=== PATIENT | male | born 1955 | race Caucasian/White ===

== ENCOUNTER 2024-04-09 11:09 | Emergency (ER) | payer SELFPAY ==
--- NOTE | 2024-04-09 11:45 | ED Physician Documentation ---
PD HPI NVD - Stated complaint Stated Complaint: GI,MARSHALL - Chief complaint Chief Complaint: Abd Pain - History obtained from History obtained from: Patient - Additonal information Additional information: This is a 68-year-old gentleman who is about a year out from an orthotopic heart transplant done for cardiomyopathy. This was done at the [facility] in [facility]. He is maintained on cyclosporine, prednisone, CellCept, valganciclovir. He is visiting from [facility] where he lives with his and over the last 3 days has had nonbloody diarrhea associate with nausea but no significant abdominal pain. No fevers. He had a course of antibiotics in December and more recently had a single dose of antibiotics before dental cleaning 3 weeks ago. He was baseline positive for HSV, EBV, toxoplasma, and CMV. PD PAST MEDICAL HISTORY - Past Medical History Past Medical History: Yes Cardiovascular: Hypertension, DC, Other : Other - Past Surgical History Past Surgical History: Yes General: Other - Allergies Allergies/Adverse Reactions: Allergies Allergy/AdvReac Type Severity Reaction Status Date / Time amlodipine Allergy Unknown Verified 04/09/24 11:17 - Social History Does the pt smoke?: No Smoking Status: Never smoker Does the pt drink ETOH?: No Does the pt have substance abuse?: No - Immunizations Immunizations are current?: No PD ED PE NORMAL - Vitals Vital signs reviewed: Yes - General General: Alert and oriented X 3, No acute distress - HEENT HEENT: PERRL, EOMI - Neck Neck: Supple, no meningeal sign, No bony TTP - Cardiac Cardiac: RRR, No murmur - Respiratory Respiratory: No respiratory distress, Clear bilaterally - Abdomen Abdomen: Normal bowel sounds, Soft, Non tender - Back Back: No CVA TTP, No spinal TTP - Derm Derm: Normal color, Warm and dry - Extremities Extremities: No edema, No calf tenderness / cord - Neuro Neuro: Alert and oriented X 3 Results - Vitals Vitals: Vital Signs - 24 hr 04/09/24 04/09/24 04/09/24 11:17 13:22 13:51 Temperature 36.2 C L Heart Rate 103 H 102 H 91 Respiratory 16 16 Rate Blood Pressure 132/97 H 143/100 H O2 Saturation 98 96 99 Oxygen O2 Source Room air - Labs Labs: Laboratory Tests 04/09/24 04/09/24 11:45 11:45 WBC 6.1 RBC 3.20 L Hgb 10.1 L Hct 32.0 L MCV 100.0 H MCH 31.6 H MCHC 31.6 L RDW 15.9 H Plt Count 214 MPV 9.8 Neut # (Auto) 4.6 Lymph # (Auto) 0.9 L [place] # (Auto) 0.4 Eos # (Auto) 0.0 Baso # (Auto) 0.0 Absolute Nucleated RBC 0.00 Nucleated RBC % 0.0 Sodium 137 Potassium 4.0 Chloride 108 Carbon Dioxide 23 Anion Gap 6.0 BUN 31 H Creatinine 1.8 H Estimated GFR (MDRD) 38 L Glucose 120 H Calcium 9.0 Total Bilirubin 0.6 AST 13 ALT 6 L Alkaline Phosphatase 30 L Total Protein 6.1 L Albumin 3.8 Globulin 2.3 Albumin/Globulin Ratio 1.7 PD Medical Decision Making - ED course ED course: This is a 68-year-old heart transplant patient who presents with 3 days of diarrhea with minimal abdominal pain and no fevers. He has a benign exam and did feel somewhat better after the administration of some IV fluids. He was able to produce a very small amount of stool for testing. I ordered extensive testing but the total volume of stool produced was probably only 5 mL and it was semiformed. As such it seems that he is getting better. I had extensive discussions with the labs about the priority of testing as it would probably be QNS for all of the testing I ordered with specific priorities bein. Stool PCR 2. Viral culture for CMV 3. Giardia 4. C. difficile Patient was unable to produce any further stool here but was Encouraged to return if not better. Lab work shows moderate anemia and CKD. They were able to show me lab work taken from about a week ago just before his trip. At that time his creatinine was 151 (today it is 159 when converted) and his hemoglobin was 10.6. Of note his cell phone is international. We tried calling it from here without success, so if there are any pertinent positive findings requiring follow-up, he confirmed the email address in the demographics can and should be used for that. Departure - Departure Disposition: 01 Home, Self Care Clinical Impression: History of heart transplant Diarrhea Qualifiers: Diarrhea type: unspecified type Qualified Code(s): R19.7 - Diarrhea, unspecified Condition: Good Record reviewed to determine appropriate education?: Yes Instructions: ED Diarrhea Viral Comments: Your lab work looks stable compared to the values you showed me from just before your trip. I have ordered extensive studies on your stool but we may not be able to do all of them as only about 5 mL of stool was obtained for lab work. As such return if you worsen especially if you were to run a fever. Follow-up with your transplant team on return home. Forms: PCP List Discharge Date/Time: 04/09/24 14:00
[2024-04-09 11:52] LABS: BASOPHILS % (AUTO) 0.7 %; EOSINOPHILS % (AUTO) 0.5 %; HGB - HEMOGLOBIN 10.1 g/dL (14.0-18.0); LYMPHOCYTES # (AUTO) 0.9 10^3/uL (1.5-3.5); LYMPHOCYTES % (AUTO) 15.1 %; MEAN CORPUSCULAR HEMOGLOBIN 31.6 pg (27.0-31.0); MEAN CORPUSCULAR HGB CONC 31.6 g/dL (32.0-36.0); MEAN PLATELET VOLUME 9.8 fL (7.4-11.4); MONOCYTES # (AUTO) 0.4 10^3/uL (0.0-1.0); MONOCYTES % (AUTO) 6.4 %; NEUTROPHILS # (AUTO) 4.6 10^3/uL (1.5-6.6); NEUTROPHILS % (AUTO) 75.7 %; PLT - PLATELET COUNT 214 10^3/uL (130-450); RED CELL DISTRIBUTION WIDTH 15.9 % (12.0-15.0); WHITE BLOOD COUNT 6.1 x10^3/uL (4.8-10.8)
[2024-04-09] MEDS: SODIUM CHLORIDE 0.9% 1,000 ML IV STA (12:01)
[2024-04-09 12:04] LABS: ALBUMIN 3.8 g/dL (3.2-5.5); ALBUMIN/GLOBULIN RATIO 1.7 (1.0-2.2); BILIRUBIN,TOTAL 0.6 mg/dL (0.2-1.0); CREATININE 1.8 mg/dL (0.6-1.3); TOTAL PROTEIN 6.1 g/dL (6.4-8.9)
[2024-04-09] MEDS: ACETAMINOPHEN 500 MG TABLET PO STA (12:23)
[2024-04-09 13:42] VITALS: BP 143/100
[2024-04-09 13:55] VITALS: O2SAT 99
[2024-04-10 08:11] LABS: ADENOVIRUS F 40/41 Not Detected (Not Detected); ASTROVIRUS Not Detected (Not Detected); C DIFFICILE TOXIN A/B Not Detected (Not Detected); CAMPYLOBACTER Not Detected (Not Detected); CRYPTOSPORIDIUM Not Detected (Not Detected); CYCLOSPORA CAYETANENSIS Not Detected (Not Detected); ENTAMOEBA HISTOLYTICA Not Detected (Not Detected); ENTEROAGGREGATIVE E COLI Not Detected (Not Detected); ENTEROPATHOGENIC E COLI Detected (Not Detected); ENTEROTOXIGENIC E COLI Not Detected (Not Detected); GIARDIA LAMBLIA Not Detected (Not Detected); NOROVIRUS GI/GII Not Detected (Not Detected); PLESIOMONAS SHIGELLOIDES Not Detected (Not Detected); ROTAVIRUS A Not Detected (Not Detected); SALMONELLA Not Detected (Not Detected); SAPOVIRUS Not Detected (Not Detected); SHIGA-TOXIN-PRODUCING E COLI Not Detected (Not Detected); SHIGELLA/ENTEROINVASIVE E COLI Not Detected (Not Detected); VIBRIO Not Detected (Not Detected); VIBRIO CHOLERAE Not Detected (Not Detected); YERSINIA ENTEROCOLITICA Not Detected (Not Detected)
--- NOTE | 2024-04-10 16:27 | ED Physician Documentation ---
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 In most folks we don't treat this as it is usually self-limited, but given your immune compromise, it would merit antibiotics. If I recall you should still be here? If so, I could send a prescription to the pharmacy of your choice (i.e. [facility] in [place].) Regards, Jordan" 04/10/24 17:52 I received the following email in reply: "Doris Salas, Yes, I am still here. Could you please send the prescription to the [facility] in [place]. Would you please ask them to expedite it? Thank you very much, Sergei Herring" I sent Azithromycin 250mg, 2 tab po daily x 3d #6 to [facility] in [place] electronically and sent the following email back to the patient. 04/10/24 17:55 I sent the following email back in reply: "Yes, I sent the prescription just now. It will arrive there immediately as the process is electronic. I also noted on it that it was urgent. That said, you might call them to expedite as well ( ). Please bring your med list with you for the pharmacist to review as you are on quite a few meds, some of which, as we discussed, are uncommon in the [place], to ensure there are no interactions. Thanks, Jordan" 04/10/24 18:00 He responded in the affirmative: "Will do. Thank you very much. Sergei"
== END 2024-04-09 14:00 | disposition home or self-care (01) ==
LOC: ED 11:09
DX: R19.7 Diarrhea, unspecified (principal); I10 Essential (primary) hypertension; I25.2 Old myocardial infarction; Z94.1 Heart transplant status
CPT/HCPCS: 36415; 80053; 85025; 87507; 99283; A9270; 87045; 87046; 87328; 87329; 87427; 87493